=== PATIENT | female | born 1945 | race Two or more races ===

== ENCOUNTER 2017-03-01 14:21 | Emergency (ER) | payer MEDICARE ==
--- NOTE | 2017-03-01 14:32 | ED Physician Chart ---
Chief Complaint/HPI - Patient Information Date Seen:: 03/01/17 Time Seen:: 14:32 Chief Complaint:: Chest achiness for 5 days. History of Present Illness:: c/o L sided chest achiness for 5 days that only occurs when she presses on her L anterior upper chest wall. Pt states that her symptom began after she had done a lot of heavy lifting. Pt took ibuprofen that helps her pain. Last use of ibuprofen was yesterday noon. No fever or cough. No palpitation, HERRMANN, ankle edema, PND, or orthopnea. Pt currently denies any chest pain or discomfort. Allergies:: Allergies Allergy/AdvReac Type Severity Reaction Status Date / Time MDX Acetaminophen Allergy Verified 01/19/16 08:34 [From Vicodin] MDX Hydrocodone Allergy Verified 01/19/16 08:34 [From Vicodin] Vitals:: see Nurse Note. Historian:: Patient Family MD/PCP:: Dr. Israel Salcedo LMP:: Postmenopausal. Review:: Nurse's Note Reviewed Review of Systems - Review of Systems General/Constitutional: No fever, No chills, No weight loss, No weakness, No diaphoresis, No edema, No loss of appetite Skin: No skin lesions, No rash, No bruising Head: No headache, No light-headedness Eyes: No loss of vision, No pain, No diplopia ENT: No earache, No nasal drainage, No sore throat, No tinnitus Neck: No neck pain, No swelling, No thyromegaly, No stiffness, No mass noted Cardio Vascular: No chest pain, No palpitations, No PND, No orthopnea, No edema , other (chest achiness with pressing on chest wall.) Pulmonary: No SOB, No cough, No sputum, No wheezing GI: No nausea, No vomiting, No diarrhea, No pain, No melena, No hematochezia, No constipation, No hematemesis G/U: No dysuria, No frequency, No hematuria Musculoskeletal: Other Endocrine: No polyuria, No polydipsia Psychiatric: No prior psych history Hematopoietic: No bruising, No lymphadenopathy Allergic/Immuno: No urticaria, No angioedema Neurological: No syncope, No focal symptoms, No weakness, No paresthesia, No headache, No dizziness, No confusion, No vertigo Past Medical History - Past Medical History Past Medical History: HTN, Thyroid disorder Family History: None Social History: Non Smoker, No Alcohol, No Drug Use, , Other (lives with her .) Employment:: Janitorial work. Surgical History: Cholecystectomy ( 5/a) Psychiatricy History: None Medication: Reviewed Family Medical History - Family Member Mother History Unknown: Yes Ethnicity: Physical Exam - Physical Examination General/Constitutional: Awake, Well-developed, well-nourished, Alert, No distress, GCS 15, Non-toxic appearing, Ambulatory Other Gen/Cons comments:: Breathes comfortably, speaks clearly, and ambulates without difficulty. Head: Atraumatic Eyes: Lids, conjuctiva normal, PERRL, EOMI Skin: Nl inspection, No rash, No skin lesions, No ecchymosis, Well hydrated, No lymphadenopathy ENMT: External ears, nose nl, Nasal exam nl, Lips, teeth, gums nl, Oropharynx nl Neck: Nontender, Full ROM w/o pain, No JVD, No nuchal rigidity, No bruit, No mass, No stridor Respiratory: Nl effort/Exclusion, Clear to Auscultation, No Wheeze/Rhonchi/Rales Cardio Vascular: RRR (with VR 62), No murmur, gallop, rubs, NL S1 S2 Other Cardio Vascular comments:: Chest wall : reproducible tenderness at L upper chest wall. No erythma, swelling , crepitus, or open wound. GI: No tenderness/rebounding/guarding, No organomegaly, No hernia, Normal BS's, Nondistended, No mass/bruits, No McBurney tenderness Other GI comments:: Abdomen is soft. Extremities: No tenderness or effusion, Full ROM, normal strength in all extremities, No edema, Normal digits & nails Neuro/Psych: Alert/oriented (oriented x 3.), Judgement/insight normal, Mood normal, Normal gait, No focal deficits Labs/Radiology/EKG Results - Lab Results Results: Laboratory Tests 03/01/17 03/01/17 03/01/17 15:03 15:03 15:03 WBC 7.9 D RBC 4.21 Hgb 12.6 Hct 36.7 MCV 87.0 MCH 29.8 MCHC Differential 34.2 RDW 12.8 Plt Count 175 MPV 9.2 Neutrophils % 49.7 Lymphocytes % 41.9 Monocytes % 5.3 Eosinophils % 2.6 Basophils % 0.5 PT 10.4 INR 1.00 PTT (Actin FS) 25.7 L Sodium 136 Potassium 3.8 Chloride 109 H Carbon Dioxide 24.2 Anion Gap 6.6 L BUN 21 Creatinine 0.6 Est GFR ( Amer) TNP Est GFR (Non-Af Amer) TNP BUN/Creatinine Ratio 35.0 Glucose 114 H Calcium 9.5 Creatine Kinase 39 Troponin I 03/01/17 15:03 WBC RBC Hgb Hct MCV MCH MCHC Differential RDW Plt Count MPV Neutrophils % Lymphocytes % Monocytes % Eosinophils % Basophils % PT INR PTT (Actin FS) Sodium Potassium Chloride Carbon Dioxide Anion Gap BUN Creatinine Est GFR ( Amer) Est GFR (Non-Af Amer) BUN/Creatinine Ratio Glucose Calcium Creatine Kinase Troponin I < 0.01 L - Radiology Results Results: PCXR: Based on my interpretation, poor inspiration; otherwise, NAD. Official report is pending. - EKG Interpretations EKG Time:: 14:34 Rate & Rhythm: Sinus bradycardia with VR 58 Comments:: No acute ischemic changes. ED Septic Shock - . Is Septic Shock (SBP<90, OR Lactate>4 mmol\L) present?: No Reassessment (Disposition) - Reassessment Reassessment:: 1550 Pt remains stable. No CP or discomfort. CXR just became available. EKG, CXR , and lab findings have been reviewed with pt. Pt requests to go home now and does not want further observation/management in hospital. Aftercare instructions have been given. Reassessment Condition:: Improved - Diagnosis Diagnosis:: Noncardiac chest wall pain due to chest muscle strain, stable and currently asymptomatic. - Aftercare/Follow up Instructions Aftercare/Follow-Up Instructions:: Refer to Discharge Instructions Notes:: Avoid heavy lifting or activities that increase chest wall motion. May continue Motrin 800 mg tab one tab po q8h prn musculoskeletal pain. Pt has the medication. May apply warm compress to affected area in chest wall for 15 minutes q2h. F/U with PCP Dr. Salcedo in one day for recheck with repeat lab study: BMP. Return to ER immediately if condition worsens or if any further questions/ problems. Medication Prescribed:: None - Patient Disposition Discharge/Transfer:: Home Time:: 16:00 Condition at Disposition:: Stable, Improved
[2017-03-01] MEDS ORDERED: Aspirin 325 mg EC PO ONE (14:51)
[2017-03-01 15:20] LABS: % BASOPHILS 0.5 % (0.0-2.0); % EOSINOPHILS 2.6 % (0.0-5.0); % LYMPHOCYTES 41.9 % (20.0-50.0); % MONOCYTES 5.3 % (2.0-10.0); % NEUTROPHILS 49.7 % (40.0-80.0); HEMATOCRIT 36.7 % (35.0-45.0); HEMOGLOBIN 12.6 gm/dL (11.7-16.1); MEAN CORPUSCULAR HEMOGLOBIN 29.8 pg (27.0-31.0); MEAN CORPUSCULAR HGB CONC 34.2 pg (28.0-36.0); MEAN PLATELET VOLUME 9.2 fl; PLATELET COUNT 175 Th/cmm (150-400); RED BLOOD COUNT 4.21 Mil/cmm (3.80-5.20); RED CELL DISTRIBUTION WIDTH 12.8 % (11.5-20.0)
[2017-03-01 15:21] LABS: WHITE BLOOD COUNT 7.9 Th/cmm (4.8-10.8)
[2017-03-01 15:29] LABS: PROTHROMBIN TIME (TEST) 10.4 SECONDS (9.5-11.5)
[2017-03-01 15:30] LABS: ANION GAP 6.6 (7.0-16.0); BUN - UREA NITROGEN 21 mg/dL (7-25); CALCIUM SERUM 9.5 mg/dL (8.6-10.3); CARBON DIOXIDE 24.2 mEq/L (21.0-31.0); CHLORIDE 109 mEq/L (98-107); CREATININE - SERUM 0.6 mg/dL (0.6-1.2); GLUCOSE 114 mg/dL (70-105); POTASSIUM SERUM 3.8 mEq/L (3.5-5.1); SODIUM SERUM 136 mEq/L (136-145)
--- NOTE | 2017-03-02 08:27 | Diagnostic Imaging Report ---
CHEST X-RAY: AP view INDICATION: Chest tightness COMPARISON: None FINDINGS: Mild chronic changes are seen with no focal consolidation or pleural effusions. Borderline prominent heart is noted. There is leftward convexity of the upper thoracic spine which may be due to positioning versus scoliosis. IMPRESSION: Mild chronic lung changes with no focal consolidation identified. Borderline cardiomegaly.
== END 2017-03-01 15:55 | disposition home or self-care (01) ==
LOC: ER 14:21
DX: S29.011A Strain of muscle and tendon of front wall of thorax, initial encounter (principal); I10 Essential (primary) hypertension; E07.9 Disorder of thyroid, unspecified; Z90.49 Acquired absence of other specified parts of digestive tract; X58.XXXA Exposure to other specified factors, initial encounter; Y93.89 Activity, other specified; Y92.89 Other specified places as the place of occurrence of the external cause; Y99.8 Other external cause status
CPT/HCPCS: 36415-UA; 71010-TC; 80048-TC; 82550-TC; 84484-TC; 85025-TC; 85610-TC; 93005